=== PATIENT | male | born 1990 | race Caucasian/White ===

== ENCOUNTER 2024-06-01 11:25 | Observation (INO) ==
[2024-06-01] MEDS: oxyCODONE HCL IR 5 MG TAB (IMMEDIATE RELEASE) PO STA (11:55)
--- NOTE | 2024-06-01 12:44 | XRay Report ---
XR hip KAM 2v w pelvis CLINICAL HISTORY: fall, hip pain, more in left COMPARISON STUDY: Left hip radiographs December 08, 2020. FINDINGS: Sacroiliac joints and symphysis pubis are intact. Alignment of the bilateral total hip arth roplasties is anatomic. There is no periprosthetic fracture. There are no fractures within the pelvis or hips. IMPRESSION: 1. No fractures within the pelvis or hips. 2. Intact total bilateral hip arthroplasties. No periprosthetic fractures. ACT 112: Negative or not required by law. Electronically signed by: Benitez Alonzo M.D. 06/01/2024 12:43 PM
--- NOTE | 2024-06-01 12:50 | XRay Report ---
XR lumbar spine 2-3V CLINICAL HISTORY: fall, back pain COMPARISON STUDY: No previous studies for comparison. FINDINGS: There is moderate loss of height of the superior endplate of L1. This represents an age ind eterminate fracture. No additional lumbar spine fractures are present. Hip arthroplasties are partial ly imaged. Disc spaces are preserved. 3 mm left renal calculus is noted. A 7 mm round density project s over the left mid abdomen. IMPRESSION: 1. Age indeterminate compression fracture of the superior endplate of L1 with moderate loss of verteb ral body height. 2. No additional lumbar spine fractures. 3. 7 cm round density which projects over the lower pole of the left kidney. This is likely artifactu al although a left renal lesion such as a cyst or less likely solid renal lesion could appear similar . Nonemergent renal ultrasound is recommended. ACT 112: Positive. There are findings on this exam that require communication between the performing entity and the patient following Patient Test Result Information Act ([place] Act 112) guidelines. Electronically signed by: Benitez Alonzo M.D. 06/01/2024 12:48 PM
--- NOTE | 2024-06-01 12:55 | XRay Report ---
XR thoracic spine 3V routine HISTORY: 33 years-old Male fall, back pain acute mid back pain status post fall COMPARISON: None TECHNIQUE: 3 views of the thoracic spine FINDINGS: The imaged lung armando appear clear. No acute fracture, subluxation or significant changes. Mild lowe r thoracic levoscoliosis. Bilateral shoulder arthroplasties. IMPRESSION: No acute fracture or subluxation identified. ACT 112: Negative or not required by law. The above report was generated using voice recognition software. It may contain grammatical, syntax o r spelling errors. Electronically signed by: Raul Jerez M.D. 06/01/2024 12:54 PM
[2024-06-01] MEDS: ONDANSETRON INJ 2 MG/ML 2 ML VIAL IV STA (13:38)
[2024-06-01] MEDS: MoRPHine SULFATE 4 MG/ML 1 ML CARP\\VIAL IV STA (13:38)
[2024-06-01] MEDS: fentaNYL citrate PF 100 MCG/2 ML VIAL IV STA (15:03)
--- NOTE | 2024-06-01 17:26 | Magnetic Resonance Report ---
EXAM: MR lumbar spine wo con CLINICAL HISTORY: TECHNIQUE: MRI of the lumbar spine was performed without the administration of intravenous contrast. Sequences obtained include sagittal T1-weighted, T2-weighted, STIR (Short Tau Inversion Recovery), and axial T2-weighted sequences. COMPARISON: None. FINDINGS: Vertebral Alignment: Straightening of lumbar spine denoting muscle spasm. Normal alignment. Vertebral Bodies and Intervertebral Discs: Evidence of L1 vertebral body acute mild compression fracture with mild anterior wedging, showing partial collapse of the vertebral body about 30%, marrow edema noted involving the vertebral body and both pedicles, no retropulased segments or epidural hematoma, minimal related prevertebral edema/fluid No other fractures. Degenerative disc changes in the form of decreased disc height and bright T2 signals manifested in L4-L5 and L5-S1 disc spaces. [id number] analysis: T12-L1: There is no significant disc pathology. No spinal canal stenosis. No neural foraminal stenosis.No ligamentum flavum hypertrophy and facet joint arthropathy. L1-L2: There is no significant disc pathology. No spinal canal stenosis. No neural foraminal stenosis.No ligamentum flavum hypertrophy and facet joint arthropathy. L2-L3: There is no significant disc pathology. No spinal canal stenosis. No neural foraminal stenosis.No ligamentum flavum hypertrophy and facet joint arthropathy. L3-L4: There is no significant disc pathology. No spinal canal stenosis. No neural foraminal stenosis.No ligamentum flavum hypertrophy and facet joint arthropathy. L4-L5: shows a diffuse disc bulge more inclined towards the left side measuring 4.5 mm with a high-intensity zone denoting annular tear compressing the anterior aspect of the thecal sac and moderately encroaching upon posterior recess and foraminal more on the left side causing moderate left-sided foraminal stenosis, bilateral facet joint arthropathy and hypertrophied ligamentum flavum identing the thecal sac posterolaterally.. L5- S1 shows a diffuse disc bulge with central and left paracentral small herniation measuring 4.8 mm with a high-intensity zone denoting annular tear compressing the anterior aspect of thecal sac partially encroaching both neural recess and foraminal more on the left side causing moderate left-sided foraminal stenosis Spinal Cord and Nerve Roots: Conus medullaris terminates at the L1 level without abnormality. Nerve roots appear unremarkable bilaterally. The lower thoracic spinal cord, conus medullaris, and cauda equina nerve roots are unremarkable. Soft Tissues: Paraspinal soft tissues appear normal without evidence of abnormal signal intensity or mass lesions. IMPRESSION: 1. L1 vertebral body acute mild compression fracture with mild anterior wedging, showing partial collapse of the vertebral body about 30%. No retropulsed segment as described above, clinical correlation is advised. 2. L4/L5 and L5/S1 degenerative disc changes with disc herniations and annular tear causing mild to moderate central canal stenosis and left-sided moderate foraminal stenosis as detailed above [facility] was called at [phone] at 4:16 PM [employer], 06/01/2024 and Taylor (field secretary) was informed regarding the presence of significant medical findings in the report. She will inform the Doctor about the findings. Electronically signed by Kaity Aceves 06-01-2024 5:25 PM
[2024-06-01] MEDS: MoRPHine SULFATE 10 MG/ML CARP/VIAL IV STA (17:49)
--- NOTE | 2024-06-01 18:52 | Emergency Department Note ---
ED Provider Note History of Present Illness Chief Complaint: Back Injury/Pain Stated Complaint: FELL, BACK PAIN/INJURY Time Seen by Provider: 06/01/24 11:41 Source: patient Mode of arrival: ambulatory Limitations: no limitations Patient is a 33-year-old male who presents to the emergency department with complaints of back pain after a ground-level fall. Patient states that he was ambulating on slid be ground and lost his footing and fell backwards onto his back. Patient notes that he did also land somewhat on his left hip area. Patient notes that he has bilateral hip replacements and is having some pain in that left hip as well. Patient notes that the pain does feel that it is in his lumbar spine. Patient denies hitting his head or any loss of consciousness. Home Medications Medication Instructions Recorded Confirmed Type buspirone 7.5 mg tablet 7.5 mg PO BID 06/01/24 06/01/24 History dextroamphetamine-amphetamine 30 30 mg PO DAILY 06/01/24 06/01/24 History mg tablet (Adderall) escitalopram oxalate 20 mg tablet 20 mg PO DAILY 06/01/24 06/01/24 History liothyronine 50 mcg tablet 50 mcg PO DAILY 06/01/24 06/01/24 History multivitamin 1 tab PO DAILY 06/01/24 06/01/24 History naltrexone 50 mg tablet 50 mg PO UD PRN Other 06/01/24 06/01/24 History naltrexone microspheres 380 mg 380 mg IM MONTHLY 06/01/24 06/01/24 History intramuscular suspension,extended release (Vivitrol) Allergies Allergy/AdvReac Type Severity Reaction Status Date / Time codeine Allergy Intermediate Swelling Verified 05/28/21 05:24 [From Tylenol-Codeine #3] naproxen Allergy Mild Flushed, Verified 05/28/21 05:24 "hot" feeling Past Med/Surg History Problem List (Updated 06/01/24 @ 19:06 by Joni Soto MD) Alcohol abuse, in remission ADD (attention deficit disorder) Fall (Acute) Lumbar radiculopathy (Acute) Closed compression fracture of body of L1 vertebra (Acute) 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 I informed the patient that he may at increased risk for nerve injury with the nerve block if he already has some underlying neuropathy. He understand and would like to proceed with the nerve block." Depression Obesity Osteonecrosis Shoulders, hip Surgical History History of arthroplasty of right shoulder 01/01/2021: Grade 1 view, Glidescope #4, ETT#8.0 + PNB at [facility]. No issues per anesthesia progress note. History of tonsillectomy History of herniorrhaphy Left inguinal S/P hip replacement R/L Family History Other No pertinent family history Social History Smoking Status: Never smoker Tobacco Type: Smokeless Tobacco (Dip or Chew) Second Hand Exposure: No; Do You Dip or Chew Tobacco: Yes (1 can/2 days (advised NPO by RN); Hx Alcohol Use: No Hx Substance Use: No Preferred Language: Micronesian Communication Ability: Effective Extractor Operator Required: No Beliefs That Will Affect Care: None Current Living Situation: Spouse current occupational status: employed current occupation: [employer] Feels Safe at Home: Yes Physical Exam Vital Signs Vital Signs - 24 hr 06/01/24 11:28 06/01/24 15:06 06/01/24 15:08 Temperature 36.3 C L Temperature Source Temporal Artery Scan Pulse Rate 104 H 75 Pulse Rate [Apical] 81 Respiratory Rate 20 14 Respiratory Effort / Characteristics Non-Labored Spontaneous Respiratory Depth Normal Blood Pressure 140/89 Blood Pressure [Left Arm] 115/72 Blood Pressure Mean 106 Blood Pressure Mean [Left Arm] 86 Pulse Oximetry 100 99 Oxygen Delivery Method Room Air Room Air Sepsis Recent Fever Within 48 Hours No Sepsis New/Unexplained Change in Mental Status N/A Sepsis Action Taken by Nursing No Action Required 06/01/24 15:08 06/01/24 16:30 06/01/24 17:00 Temperature Temperature Source Pulse Rate Pulse Rate [Apical] 74 93 H Respiratory Rate 16 18 Respiratory Effort / Characteristics Respiratory Depth Blood Pressure Blood Pressure [Left Arm] 132/78 108/73 Blood Pressure Mean Blood Pressure Mean [Left Arm] 96 84 Pulse Oximetry 99 97 97 Oxygen Delivery Method Room Air Sepsis Recent Fever Within 48 Hours Sepsis New/Unexplained Change in Mental Status Sepsis Action Taken by Nursing 06/01/24 18:01 06/01/24 19:28 Temperature Temperature Source Pulse Rate Pulse Rate [Apical] 74 82 Respiratory Rate 18 16 Respiratory Effort / Characteristics Non-Labored Respiratory Depth Normal Blood Pressure Blood Pressure [Left Arm] 132/74 128/66 Blood Pressure Mean Blood Pressure Mean [Left Arm] 93 86 Pulse Oximetry 100 98 Oxygen Delivery Method Sepsis Recent Fever Within 48 Hours Sepsis New/Unexplained Change in Mental Status Sepsis Action Taken by Nursing VITAL SIGNS - Vital signs and nursing notes were reviewed. GENERAL -33-year-old male appearing his stated age and in noticeable discomfort throughout the exam. NECK - FROM of the cervical spine. ABDOMEN - Abdominal contour without pulsations or visible masses. BS normoactive all four quadrants. MUSCULOSKELETAL - ROM of the thoracic and lumbar spine region was significantly limited due to discomfort. No step-off deformities were palpated down the cervical, thoracic, or lumbar spines. Increased tenderness to Palpation experienced at the level of the lumbar spine paraspinal muscle distribution. NEUROLOGIC - REFLEXES: +3/4 patellar reflexes B/L, +3/4 Achilles reflexes B/L. SENSORY: Spinothalamic tract was found to be intact with ability to discriminate sharp versus dull sensation at the level of hip joint down do the great toe, though the patient does note that he is having tingling and intermittent bouts of increased numbness down his left leg. CEREBELLAR: Pt able to perform rapid alternating movements of the feet. EXTREMITIES - Range of Motion - Pt not easily able to perform straight leg raises B/L, more pronounced difficulty on the left side. Pt had + 4 strength appreciated bilaterally in the lower extremities against examiner's resistance. VASCULAR - Capillary refill of the great toe was brisk. No mottling or blanching of the extremities present. +3/5 dorsalis pedis pulses palpated bilaterally. Course Administered Medications Calcitonin Harriman (Calcitonin Harriman Na 200 Iu/Ac 3.7 Ml Btl) 1 sprays NA DAILY JEFF Stop: 07/01/24 19:14 Last Admin: 11/22/24 19:59 Dose: 1 sprays Documented By: ALEX Discontinued Medications Fentanyl Citrate (Fentanyl Citrate Pf 100 Mcg/2 Ml Vial) 100 mcg IV NOW STA Stop: 06/01/24 14:59 Last Admin: 06/01/24 15:03 Dose: 100 mcg Documented By: CHERRY Ioversol (Optiray 320 100ml) 90 ml IV ONCE ONE Stop: 06/01/24 19:21 Last Admin: 06/01/24 19:21 Dose: 90 ml Documented By: BAYLEE Lidocaine (Lidocaine 5% 1 Patch) 1 patch TD ONE ONE Stop: 06/01/24 19:31 Last Admin: 06/01/24 19:59 Dose: 1 patch Documented By: ALEX Morphine Sulfate (Morphine Sulfate 4 Mg/Ml 1 Ml Carp\\Vial) 4 mg IV NOW STA Stop: 06/01/24 13:28 Last Admin: 06/01/24 13:38 Dose: 4 mg Documented By: Morphine Sulfate (Morphine Sulfate 10 Mg/Ml Carp/Vial) 6 mg IV NOW STA Stop: 06/01/24 17:41 Last Admin: 06/01/24 17:49 Dose: 6 mg Documented By: CHERRY Ondansetron HCl (Ondansetron Inj 2 Mg/Ml 2 Ml Vial) 4 mg IV NOW STA Stop: 06/01/24 13:28 Last Admin: 06/01/24 13:38 Dose: 4 mg Documented By: MR Oxycodone HCl (Oxycodone Hcl Ir 5 Mg Tab (Immediate Release)) 10 mg PO NOW STA Stop: 06/01/24 11:46 Last Admin: 06/01/24 11:55 Dose: 10 mg Documented By: MIHCAEL Medical Decision Making Differential Diagnosis In the evaluation and treatment of this patient the following differential diagnoses were considered: Cauda equina syndrome, discitis, HNP, sciatica, epidural abscess, psoas abscess, musculoskeletal strain, lumbar fracture, lumbar dislocation, lumbar subluxation, spondylolisthesis, spondylosis, or compression fracture. Medical Records Attestation: I reviewed the patient's medical records. Home Medications was personally reviewed by me Laboratory Data Attestation: I reviewed the patient's lab results. 06/01/24 18:40 06/01/24 18:40 Lab Results 06/01/24 Range/Units 18:40 WBC 6.48 (4.8-10.8) K/ul RBC 5.35 (4.70-6.10) M/uL Hgb 15.2 (14.0-18.0) g/dl Hct 45.6 (42.0-52.0) % MCV 85.2 (80.0-100.0) fL MCH 28.4 (25.0-34.0) pg MCHC 33.3 (32.0-36.0) g/dL RDW Std Deviation 37.4 (36.4-46.3) fL RDW Coeff of Padmaja 12.0 (11.5-14.5) % Plt Count 170 (130-400) K/uL MPV 9.4 (9.4-12.4) fL Immature Gran % (Auto) 0.3 % Neut % (Auto) 64.6 % Lymph % (Auto) 23.9 % [place] % (Auto) 9.1 % Eos % (Auto) 1.9 % Baso % (Auto) 0.2 % Neut # (Auto) 4.19 (1.40-6.50) K/uL Lymph # (Auto) 1.55 (1.20-3.40) K/uL [place] # (Auto) 0.59 (0.11-0.59) K/uL Eos # (Auto) 0.12 (0.00-0.50) K/uL Baso # (Auto) 0.01 (0.00-0.20) K/uL Immature Gran # (Auto) 0.02 (0.01-0.20) K/uL Sodium 140 (136-145) mmol/L Potassium 4.1 (3.5-5.1) mmol/L Chloride 106 (98-107) mmol/L Carbon Dioxide 26 (21-32) mmol/L Anion Gap 8 (3-11) BUN 15 (6-23) mg/dl Creatinine 0.84 (0.6-1.4) mg/dl Est Cr Clr Drug Dosing 167.9 ml/min eGFR 117.35 BUN/Creatinine Ratio 17.9 (10-20) Glucose 96 (70-99(Fasting)) mg/dl Calcium 9.7 (8.6-10.3) mg/dl Total Bilirubin 0.9 (0.2-1.0) mg/dl AST 22 (13-39) U/L ALT 25 (7-52) U/L Alkaline Phosphatase 55 (34-104) U/L Total Protein 7.1 (6.0-8.3) gm/dl Albumin 4.3 (3.4-5.0) gm/dl Globulin 2.8 (2.5-4.0) gm/dl Albumin/Globulin Ratio 1.5 (0.9-2) Imaging Data Radiologist's Impression: Hip/Pelvis X-Ray 06/01/24 11:44 XR hip KAM 2v w pelvis CLINICAL HISTORY: fall, hip pain, more in left COMPARISON STUDY: Left hip radiographs December 08, 2020. FINDINGS: Sacroiliac joints and symphysis pubis are intact. Alignment of the bilateral total hip arthroplasties is anatomic. There is no periprosthetic fracture. There are no fractures within the pelvis or hips. IMPRESSION: 1. No fractures within the pelvis or hips. 2. Intact total bilateral hip arthroplasties. No periprosthetic fractures. ACT 112: Negative or not required by law. Electronically signed by: Benitez Alonzo M.D. 06/01/2024 12:43 PM Lumbar Spine X-Ray 06/01/24 11:44 XR lumbar spine 2-3V CLINICAL HISTORY: fall, back pain COMPARISON STUDY: No previous studies for comparison. FINDINGS: There is moderate loss of height of the superior endplate of L1. This represents an age indeterminate fracture. No additional lumbar spine fractures are present. Hip arthroplasties are partially imaged. Disc spaces are preserved. 3 mm left renal calculus is noted. A 7 mm round density projects over the left mid abdomen. IMPRESSION: 1. Age indeterminate compression fracture of the superior endplate of L1 with moderate loss of vertebral body height. 2. No additional lumbar spine fractures. 3. 7 cm round density which projects over the lower pole of the left kidney. This is likely artifactual although a left renal lesion such as a cyst or less likely solid renal lesion could appear similar. Nonemergent renal ultrasound is recommended. ACT 112: Positive. There are findings on this exam that require communication between the performing entity and the patient following Patient Test Result Information Act ([place] Act 112) guidelines. Electronically signed by: Benitez Alonzo M.D. 06/01/2024 12:48 PM Thoracic Spine X-Ray 06/01/24 11:44 XR thoracic spine 3V routine HISTORY: 33 years-old Male fall, back pain acute mid back pain status post fall COMPARISON: None TECHNIQUE: 3 views of the thoracic spine FINDINGS: The imaged lung armando appear clear. No acute fracture, subluxation or significant changes. Mild lower thoracic levoscoliosis. Bilateral shoulder arthroplasties. IMPRESSION: No acute fracture or subluxation identified. ACT 112: Negative or not required by law. The above report was generated using voice recognition software. It may contain grammatical, syntax or spelling errors. Electronically signed by: Raul Jerez M.D. 06/01/2024 12:54 PM Lumbar Spine MRI 06/01/24 13:11 EXAM: MR lumbar spine wo con CLINICAL HISTORY: TECHNIQUE: MRI of the lumbar spine was performed without the administration of intravenous contrast. Sequences obtained include sagittal T1-weighted, T2-weighted, STIR (Short Tau Inversion Recovery), and axial T2-weighted sequences. COMPARISON: None. FINDINGS: Vertebral Alignment: Straightening of lumbar spine denoting muscle spasm. Normal alignment. Vertebral Bodies and Intervertebral Discs: Evidence of L1 vertebral body acute mild compression fracture with mild anterior wedging, showing partial collapse of the vertebral body about 30%, marrow edema noted involving the vertebral body and both pedicles, no retropulased segments or epidural hematoma, minimal related prevertebral edema/fluid No other fractures. Degenerative disc changes in the form of decreased disc height and bright T2 signals manifested in L4-L5 and L5-S1 disc spaces. [id number] analysis: T12-L1: There is no significant disc pathology. No spinal canal stenosis. No neural foraminal stenosis.No ligamentum flavum hypertrophy and facet joint arthropathy. L1-L2: There is no significant disc pathology. No spinal canal stenosis. No neural foraminal stenosis.No ligamentum flavum hypertrophy and facet joint arthropathy. L2-L3: There is no significant disc pathology. No spinal canal stenosis. No neural foraminal stenosis.No ligamentum flavum hypertrophy and facet joint arthropathy. L3-L4: There is no significant disc pathology. No spinal canal stenosis. No neural foraminal stenosis.No ligamentum flavum hypertrophy and facet joint arthropathy. L4-L5: shows a diffuse disc bulge more inclined towards the left side measuring 4.5 mm with a high-intensity zone denoting annular tear compressing the anterior aspect of the thecal sac and moderately encroaching upon posterior recess and foraminal more on the left side causing moderate left-sided foraminal stenosis, bilateral facet joint arthropathy and hypertrophied ligamentum flavum identing the thecal sac posterolaterally.. L5- S1 shows a diffuse disc bulge with central and left paracentral small herniation measuring 4.8 mm with a high-intensity zone denoting annular tear compressing the anterior aspect of thecal sac partially encroaching both neural recess and foraminal more on the left side causing moderate left-sided foraminal stenosis Spinal Cord and Nerve Roots: Conus medullaris terminates at the L1 level without abnormality. Nerve roots appear unremarkable bilaterally. The lower thoracic spinal cord, conus medullaris, and cauda equina nerve roots are unremarkable. Soft Tissues: Paraspinal soft tissues appear normal without evidence of abnormal signal intensity or mass lesions. IMPRESSION: 1. L1 vertebral body acute mild compression fracture with mild anterior wedging, showing partial collapse of the vertebral body about 30%. No retropulsed segment as described above, clinical correlation is advised. 2. 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 She will inform the Doctor about the findings. Electronically signed by Kaity Aceves 06-01-2024 5:25 PM [facility] Narrative Patient is a 33-year-old male who presents to the emergency department with complaints of back pain after a ground-level fall. Patient states that he was ambulating on slid be ground and lost his footing and fell backwards onto his back. Patient notes that he did also land somewhat on his left hip area. Patient notes that he has bilateral hip replacements and is having some pain in that left hip as well. Patient notes that the pain does feel that it is in his lumbar spine. Patient denies hitting his head or any loss of consciousness. Patient was evaluated by myself and findings were noted in physical exam above. The patient was initially ordered an x-ray of the left hip and pelvis as well as the thoracic and lumbar spines. Patient was ordered a dose of IV morphine and IV Zofran for his symptoms at this time. Patient's hip x-ray was interpreted by radiology and shows no fracture within the pelvis or the hips. Patient has intact total bilateral hip arthroplasties with no periprosthetic fractures. On the patient's lumbar spine x-ray radiology noted an age-indeterminate compression fracture of L1 with moderate loss of vertebral body height. And the thoracic spine x-ray showed no acute fracture or subluxation. I reached out to Dr. Oneill who is on-call for orthospine to review these findings with him. Dr. Oneill suggested that because the patient is having some radicular pain and the presence of this possible acute fracture that an MRI should be completed. Patient was ordered an MRI of the lumbar spine at this time. Upon reevaluation the patient states that his pain is still significant and the first dose of morphine did not help much with this pain. Patient was then ordered a an IV dose of fentanyl for pain. Upon reevaluation the patient states that the fentanyl did nothing to help with his pain and the morphine was more pain relieving. Patient was ordered a second dose of morphine at this time. Patient's MRI was interpreted by radiology to show L1 vertebral body acute mild compression fracture with mild anterior wedging and a partial collapse of the vertebral body. Patient also had L4-L5 and L5-S1 disc herniations. I reached back out to Dr. Oneill with his MRI results and he verbalized that he was also looking at the results and suggested that if the patient's pain was not able to be controlled with several rounds of IV pain medication that he should likely be admitted to the hospital for intractable pain. He suggested that the patient be admitted to the hospitalist service and they could consult him. I did ask Dr. Oneill if he would be willing to admit the patient under his service but he again suggested that the patient be admitted under the medical service and consult him. [facility] service. Dr. Neff was given a brief report on the patient, his current status and MRI findings as well as consult from Dr. Oneill. Dr. Neff agreed to admit the patient under his service. Please refer to [facility] hospitalist group's documentation for further management and evaluation of this patient. Impression Closed compression fracture of body of L1 vertebra, Lumbar radiculopathy, Fall Discharge Plan Visit Data Chief Complaint: Back Injury/Pain Stated Complaint: FELL, BACK PAIN/INJURY ED Provider: Barry Garcia ED Midlevel Provider: Alem Berry Discharge Problem: Closed compression fracture of body of L1 vertebra, Lumbar radiculopathy, Fall Patient Disposition: Admitted As Inpatient Forms Stand Alone Forms: [facility] Prescriptions Prescriptions: No Action multivitamin [Multi-Vitamin] Tablet 1 tab PO DAILY naltrexone 50 mg tablet 50 mg PO UD PRN (Reason: Other) Rx Instructions: takes when he feels the vivitrol shot effects wearing off for the month dextroamphetamine-amphetamine [Adderall] 30 mg tablet 30 mg PO DAILY liothyronine 50 mcg tablet 50 mcg PO DAILY buspirone 7.5 mg tablet 7.5 mg PO BID escitalopram oxalate 20 mg tablet 20 mg PO DAILY Vivitrol 380 mg suspension,extended rel recon 380 mg IM MONTHLY Referrals Referrals: PCP,NO [Primary Care Provider] - Discharge Problem: Fall Qualifiers: Encounter type: initial encounter Qualified Code(s): W19.XXXA - Unspecified fall, initial encounter
[2024-06-01 18:59] LABS: Basophils # (auto) 0.01 K/uL (0.00-0.20); Basophils % (auto) 0.2 %; Eosinophils # (auto) 0.12 K/uL (0.00-0.50); Eosinophils % (auto) 1.9 %; Hematocrit (blood only) 45.6 % (42.0-52.0); Hemoglobin 15.2 g/dl (14.0-18.0); Immature Granulocytes # (auto) 0.02 K/uL (0.01-0.20); Immature Granulocytes % (auto) 0.3 %; Lymphocytes # (auto) 1.55 K/uL (1.20-3.40); Lymphocytes % (auto) 23.9 %; Mean Corpuscular Hemoglobin 28.4 pg (25.0-34.0); Mean Corpuscular Hgb Conc 33.3 g/dL (32.0-36.0); Mean Corpuscular Volume 85.2 fL (80.0-100.0); Mean Platelet Volume 9.4 fL (9.4-12.4); Monocytes # (auto) 0.59 K/uL (0.11-0.59); Monocytes % (auto) 9.1 %; Neutrophils # (auto) 4.19 K/uL (1.40-6.50); Neutrophils % (auto) 64.6 %; Platelet Count 170 K/uL (130-400); RDW Standard Deviation 37.4 fL (36.4-46.3); Red Blood Count 5.35 M/uL (4.70-6.10); White Blood Count 6.48 K/ul (4.8-10.8)
[2024-06-01 19:09] LABS: Albumin Globulin Ratio 1.5 (0.9-2); Albumin Level 4.3 gm/dl (3.4-5.0); BUN Creatinine Ratio 17.9 (10-20); Bilirubin,Total 0.9 mg/dl (0.2-1.0); Calcium 9.7 mg/dl (8.6-10.3); Creatinine Clr Calc Pharmacy 167.9 ml/min; Globulin 2.8 gm/dl (2.5-4.0); Potassium 4.1 mmol/L (3.5-5.1); Total Protein 7.1 gm/dl (6.0-8.3)
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
[2024-06-01] MEDS ORDERED: MoRPHine SULFATE 2 MG/ML CARP IV PRN (19:13)
[2024-06-01] MEDS ORDERED: ACETAMINOPHEN 325 MG TAB PO PRN (19:13)
[2024-06-01] MEDS: OPTIRAY 320 100ml IV ONE (19:21)
[2024-06-01] MEDS: CALCITONIN SALMON NA 200 IU/AC 3.7 ML BTL SCH (19:59)
[2024-06-01] MEDS: LIDOCAINE 5% 1 PATCH TD ONE (19:59)
[2024-06-01] MEDS: CALCIUM 600MG + VIT D 400 IU TAB PO ONE (21:46)
[2024-06-01] MEDS ORDERED: Nursing to Pharmacy Communication SCH (22:00)
[2024-06-02] MEDS: busPIRone 7.5 MG TAB PO SCH (00:05)
[2024-06-02] MEDS: MoRPHine SULFATE 4 MG/ML 1 ML CARP\\VIAL IV PRN (05:51)
[2024-06-02 07:29] LABS: Basophils # (auto) 0.02 K/uL (0.00-0.20); Basophils % (auto) 0.3 %; Eosinophils % (auto) 4.9 %; Hematocrit (blood only) 43.8 % (42.0-52.0); Hemoglobin 14.4 g/dl (14.0-18.0); Immature Granulocytes # (auto) 0.02 K/uL (0.01-0.20); Immature Granulocytes % (auto) 0.3 %; Lymphocytes % (auto) 26.2 %; Mean Corpuscular Hgb Conc 32.9 g/dL (32.0-36.0); Mean Platelet Volume 9.5 fL (9.4-12.4); Monocytes # (auto) 0.58 K/uL (0.11-0.59); Monocytes % (auto) 9.5 %; Neutrophils # (auto) 3.58 K/uL (1.40-6.50); Neutrophils % (auto) 58.8 %; Platelet Count 168 K/uL (130-400); RDW Coefficient of Variation 12.2 % (11.5-14.5); RDW Standard Deviation 37.2 fL (36.4-46.3); Red Blood Count 5.15 M/uL (4.70-6.10)
[2024-06-02 08:04] LABS: BUN Creatinine Ratio 16.3 (10-20); Calcium 9.3 mg/dl (8.6-10.3); Creatinine Clr Calc Pharmacy 174.8 ml/min; Potassium 4.3 mmol/L (3.5-5.1)
[2024-06-02 08:09] VITALS: O2SAT 96
[2024-06-02] MEDS: CALCIUM 600MG + VIT D 400 IU TAB PO SCH (09:10)
[2024-06-02] MEDS: LIOTHYRONINE SODIUM 25 MCG TAB PO SCH (09:11)
[2024-06-02] MEDS: ESCITALOPRAM OXALATE 20 MG TAB PO SCH (09:11)
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
[2024-06-02] MEDS ORDERED: oxyCODONE HCL IR 5 MG TAB (IMMEDIATE RELEASE) PO PRN (09:53)
[2024-06-02] MEDS ORDERED: tiZANidine HCL 4 MG TABLET PO PRN (09:53)
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
[2024-06-02] MEDS: LIDOCAINE 5% 1 PATCH TD SCH (10:39)
--- NOTE | 2024-06-02 12:29 | CT Scan Report ---
Exam(s): CT L SPINE IV Amt: OPTIRAY 320 90ML EXAM: CT Lumbar Spine With Intravenous Contrast CLINICAL HISTORY: Reason for exam: lumbar back pain, Dr. Oneill requested. TECHNIQUE: Axial computed tomography images of the lumbar spine with intravenous contrast. CTDI is 78.8 mGy and DLP is 2274.97 mGy-cm. Automated exposure control was utilized for the study. A dose lowering technique was utilized adhering to the principles of ALARA. CONTRAST: Patient received OPTIRAY 320 90ML of IV contrast COMPARISON: Same day lumbar spine radiographs and MRI lumbar spine. FINDINGS: Bones: Normal alignment. Comminuted fractures of the L1 vertebral body. Approximately up to 50% vertebral body height loss. Disc spaces: No subluxation. No spinal canal stenosis or neuroforaminal stenosis. Soft tissues: Normal. Other: Small nonobstructing bilateral renal stones. IMPRESSION: Comminuted fractures of the L1 vertebral body. Electronically signed by: [employer] M.D. 06/01/24 20:33 PM
[2024-06-02 16:16] VITALS: BP 121/67; PULSE 62; RESP 18; TEMP 97.9
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
== END 2024-06-02 18:42 | disposition home or self-care (01) | DRG 552 ==
LOC: ED 11:25 → INTOOBSV 19:11 → 3N 19:11 → SUATTDRO 19:11 → 3N 22:22

== ENCOUNTER 2024-12-28 06:06 | Inpatient (IN) ==
--- NOTE | 2024-11-12 11:44 | PAT Medication Instructions ---
Medication Instructions Date of Service November 12, 2024 Home Medications buspirone 7.5 mg tablet 7.5 mg PO BID dextroamphetamine-amphetamine 30 mg tablet (Adderall) 30 mg PO QAM escitalopram oxalate 20 mg tablet 20 mg PO QAM liothyronine 50 mcg tablet 50 mcg PO QAM multivitamin 1 tab PO DAILY naltrexone 50 mg tablet 50 mg PO UD PRN Other naltrexone microspheres 380 mg intramuscular suspension,extended release (Vivitrol) 380 mg IM MONTHLY Continue as directed naltrexone microspheres 380 mg intramuscular suspension,extended release (Vivitrol) 380 mg IM MONTHLY naltrexone 50 mg tablet 50 mg PO UD PRN Other (if needed) DO NOT take the morning of surgery dextroamphetamine-amphetamine 30 mg tablet (Adderall) 30 mg PO QAM multivitamin 1 tab PO DAILY Take morning of surgery With a small sip of water, OTHERWISE NOTHING TO EAT OR DRINK AFTER MIDNIGHT: buspirone 7.5 mg tablet 7.5 mg PO BID escitalopram oxalate 20 mg tablet 20 mg PO QAM liothyronine 50 mcg tablet 50 mcg PO QAM Take evening before surgery buspirone 7.5 mg tablet 7.5 mg PO BID Other Notes If you have any questions please call us at [phone] or [phone] or [phone] or [phone]
--- NOTE | 2024-12-10 08:58 | Anesthesiology Consultation ---
Date of Service December 10, 2024 Assessment & Plan (1) Encounter for pre-operative examination: - Infectious disease screening: Per assessment on 12/10/24- No known recent infectious disease contacts or current infectious disease symptoms. - Anesthesia hx: * Left TSA (05/28/21): LMA#5 Igel, atraumatic + regional at [facility] * Right TSA anatomic (01/01/2021): Grade 1 view, Glidescope #4, ETT#8.0 + PNB at [facility] Chart Review Chart Review: Acceptable Risk for Surgery and Patient seen in Pre Admission Testing Teaching & Discussion Pre-Anesthesia Teaching/Discussion Notes: Instructed NPO after midnight before surgery,except medications with 15 cc of water. Medication instructions provided according to the PAT guidelines. History Surgery Operation Date: 12/28/24 07:30 Proposed Procedures p T12-L2 Posterior Lumbar Instrumental Fusion, with CT Navigation and Spinal Cord Monitoring - Darnell Oneill MD Height/Weight Height: 6 ft 3 in Weight: 123 kg Allergies Allergy/AdvReac Type Severity Reaction Status Date / Time codeine Allergy Intermediate Swelling Verified 11/09/24 11:54 [From Tylenol-Codeine #3] naproxen Allergy Mild Flushed, Verified 11/09/24 11:54 "hot" feeling Medications Home Medications Medication Instructions Recorded Confirmed Last Taken buspirone 7.5 mg tablet 7.5 mg PO BID 06/01/24 11/09/24 Unknown dextroamphetamine-amphetamine 30 30 mg PO QAM 06/01/24 11/09/24 Unknown mg tablet (Adderall) escitalopram oxalate 20 mg tablet 20 mg PO QAM 06/01/24 11/09/24 Unknown liothyronine 50 mcg tablet 50 mcg PO QAM 06/01/24 11/09/24 Unknown multivitamin 1 tab PO DAILY 06/01/24 11/09/24 Unknown naltrexone 50 mg tablet 50 mg PO UD PRN Other 06/01/24 11/09/24 Unknown naltrexone microspheres 380 mg 380 mg IM MONTHLY 06/01/24 11/09/24 Unknown intramuscular suspension,extended release (Vivitrol) Past Medical History Medical History ADD (attention deficit disorder) Alcohol abuse, in remission Depression History of seizure Hx seizures from alcohol withdrawal (2016) Now sober; no issues since Hypothyroidism Obesity Paresthesia of both hands Occasional Vertebral compression fracture 05/2024, r/t fall injury Exercise / Class Metabolic Activity II 4-5 Yardwork/Stairs/Walk up hill (one FS: No CP, no SOB) Past Family History Family History Other No family history of adverse response to anesthesia No pertinent family history Past Surgical History Surgical History History of arthroplasty of right shoulder Grade 1 view, Glidescope #4, ETT#8.0 + PNB at [facility]. No issues per anesthesia progress note (01/01/2021) History of herniorrhaphy Left inguinal History of left shoulder replacement Left TSA (05/28/21): LMA#5 Igel, atraumatic + regional at [facility] History of tonsillectomy Hx of colonoscopy S/P hip replacement R/L Past Anesthesia History No Hx of Anesthesia Complications and No Family Hx of Anesthesia Complications History of PONV No Hx of PONV and No Hx of Motion Sickness Social History Smoking Status: Never smoker tobacco type: smokeless tobacco Do You Dip or Chew Tobacco: Yes (Daily- advised none DOS) Hx Alcohol Use: No (Hx alcohol use/abuse, Sober/no ETOH use x ~3 years) Hx Substance Use: No substance use type: does not use Review of Systems Patient denies chest pain, shortness of breath, dyspnea on exertion, fever, chills, cough, wheezing, palpitations. Physical Exam Vital Signs BP 123/83 P 86 TEMP 98.3 SP02 98%RA RESP 18 Physical Full cervical extension range of motion. Full TMJ range of motion. TMD > 3.5 finger breaths Mallampati Score II Dentition: intact, dental work currently scheduled to be done day before surgery; "filling" several crowns that are worn down > Génesis Castañeda with surgeon's office notified Lungs: clear throughout to auscultation Cardiac: regular rate and rhythm, no murmurs noted Spine: normal Extremities: no LE edema Lab Results Anesthesia Preop Results Results Anesthesia Widget: WBC 6.68 K/ul (4.8-10.8) 12/10/24 Hgb 15.5 g/dl (14.0-18.0) 12/10/24 Hct 46.0 % (42.0-52.0) 12/10/24 Plt 218 K/uL (130-400) 12/10/24 Na 137 mmol/L (136-145) 12/10/24 K 4.3 mmol/L (3.5-5.1) 12/10/24 Cl 103 mmol/L (98-107) 12/10/24 CO2 26 mmol/L (21-32) 12/10/24 BUN 21 mg/dl (6-23) 12/10/24 Creat 0.93 mg/dl (0.6-1.4) 12/10/24 Glucose Level 105 mg/dl (70-99(Fasting)) H 12/10/24 PT 10.8 Seconds (9.0-12.0) 12/10/24 PTT 27 Seconds (21-31) 12/10/24 INR 1.0 (0.9-1.1) 12/10/24 HA1c 5.4 % (4.5-5.6) 12/10/24 Blood Type A Positive 12/10/24 Antibody Screen NEGATIVE 12/10/24
[2024-12-28] MEDS: LR 15ML/HR IV SCH (06:31)
[2024-12-28] MEDS: LR 60ML/HR IV SCH (06:31)
[2024-12-28] MEDS ORDERED: REMIFENTANIL HCL 1 MG VIAL IV ONE (06:41)
[2024-12-28] MEDS ORDERED: PROPOFOL IV EMULSION 10 MG/ML 20 ML VIAL IV ONE ×2 (06:42→10:06)
[2024-12-28] MEDS ORDERED: DEXAMETHASONE SOD INJ 4 MG/ML VIAL ONE (06:42)
[2024-12-28] MEDS ORDERED: ROCURONIUM BROMIDE 10 MG/ML 5 ML VIAL IV ONE ×2 (06:42→09:08)
[2024-12-28] MEDS ORDERED: LIDOCAINE 2% 2 ML VIAL/AMP(20MG/ML) INFIL ONE (06:42)
[2024-12-28] MEDS ORDERED: ONDANSETRON INJ 2 MG/ML 2 ML VIAL ONE (06:42)
[2024-12-28] MEDS ORDERED: SUCCINYLCHOLINE CHLORIDE 20 MG/ML 10 ML VIAL IV ONE (06:42)
[2024-12-28] MEDS ORDERED: fentaNYL citrate PF 100 MCG/2 ML VIAL ONE ×3 (06:43→10:41)
[2024-12-28] MEDS ORDERED: KETAMINE HCL 10MG/ML SYR ONE (06:43)
[2024-12-28] MEDS ORDERED: MIDAZOLAM HCL 1 MG/ML 2ML VIAL ONE (06:43)
[2024-12-28] MEDS ORDERED: DexMEDEtomidine HCL IV 100 MCG/ML VIAL IV ONE (06:45)
[2024-12-28] MEDS ORDERED: ATROPINE SULFATE 0.1 MG/ML 10ML SYR IV PRN (07:07)
[2024-12-28] MEDS ORDERED: DROPERIDOL 5 MG/2 ML VIAL IV PRN (07:07)
--- NOTE | 2024-12-28 07:23 | History & Physical Bridge Note ---
Date of Service December 28, 2024 History & Physical Bridge Note I have examined the patient, reviewed the History & Physical and in the interval since the performance of the History & Physical I have noted the following changes of clinical significance: no changes noted Plan for T12-L2 fusion for non-healing fracture at L1
[2024-12-28] MEDS: ceFAZolin 3000MG 3,000 MG/72.5 ML BAG IV SCH ×2 (07:36→17:17)
[2024-12-28] MEDS ORDERED: ALBUMIN HUMAN 5% 12.5 GM/250 ML VIAL IV ONE (08:34)
[2024-12-28] MEDS ORDERED: PHENYLEPHRINE 100MCG/ML 5ML SYR ONE (09:08)
[2024-12-28] MEDS ORDERED: SUGAMMADEX SODIUM 200 MG/2 ML VIAL IV ONE (09:38)
[2024-12-28] MEDS ORDERED: PROPOFOL IV EMULSION 10 MG/ML 100 ML VIAL IV ONE (10:06)
[2024-12-28] MEDS: BUPIVACAINE 0.5 % 5 MG/1 ML MPF 30ML VIAL ONE (10:39)
[2024-12-28] MEDS: VANCOMYCIN HCL 1000MG/20ML VIAL ONE (10:40)
--- NOTE | 2024-12-28 10:49 | Fluoroscopy Report ---
FL lumbar spine 2-3V CLINICAL HISTORY: T12-L2 POSTERIOR LUMBAR FUSION COMPARISON STUDY: None FLUOROSCOPY TIME: 17 seconds FLUOROSCOPY IMAGES: 6 EXPOSURE DOSE: 11 mGy FINDINGS: Fluoroscopy was provided for spinal surgery. IMPRESSION: Intraoperative fluoroscopy. ACT 112: Negative or not required by law. Electronically signed by: Jj Borges M.D. 12/28/2024 10:48 AM
[2024-12-28] MEDS ORDERED: ONDANSETRON 4 MG OD TAB PO PRN (11:09)
[2024-12-28] MEDS ORDERED: ALUMINUM/MAGNESIUM SUSP 30 ML UDC PO PRN (11:09)
[2024-12-28] MEDS ORDERED: DO NOT ADMINISTER FLU VACCINE PRN (11:09)
[2024-12-28] MEDS ORDERED: SOD PHOSPHATE/SOD BIPHOSPHATE ENEMA 132 ML BTL PR PRN (11:09)
[2024-12-28] MEDS ORDERED: LORazepam 2 MG/1 ML VIAL IV PRN (11:09)
[2024-12-28] MEDS ORDERED: LORazepam 0.5 MG TAB PO PRN (11:09)
[2024-12-28] MEDS ORDERED: DO NOT ADMINISTER PNEUMOCOCCAL VACCINE PRN (11:09)
[2024-12-28] MEDS ORDERED: PROMETHAZINE 12.5 MG/50.5 ML BAG IV PRN (11:09)
[2024-12-28] MEDS ORDERED: bisacodyL 10 MG SUPP PR PRN (11:09)
[2024-12-28] MEDS ORDERED: FAMOTIDINE 20 MG TAB PO PRN (11:09)
[2024-12-28] MEDS ORDERED: NALOXONE HCL 0.4 MG/1 ML VIAL/CARP IV PRN (11:09)
[2024-12-28] MEDS ORDERED: ONDANSETRON INJ 2 MG/ML 2 ML VIAL IV PRN (11:09)
[2024-12-28] MEDS ORDERED: diphenhydrAMINE Capsule 25 MG CAP PO PRN (11:09)
[2024-12-28] MEDS ORDERED: MAGNESIUM HYDROXIDE SUSP 30 ML UDC PO PRN (11:09)
[2024-12-28] MEDS ORDERED: ACETAMINOPHEN 1,000 MG/100 ML VIAL IV PRN (11:09)
[2024-12-28] MEDS ORDERED: METOCLOPRAMIDE HCL INJ 5 MG/ML 2 ML VIAL IV PRN (11:09)
[2024-12-28] MEDS: HYDROmorphone INJ 2 MG/ML SYR/VIAL IV PRN ×2 (11:21→13:57)
[2024-12-28] MEDS: PROMETHAZINE HCL 6.25 MG in SODIUM CHLORIDE 0.9% 50 ML IV PRN (11:24)
[2024-12-28] MEDS: PROMETHAZINE HCL INJ 25 MG/ML 1 ML VIAL ONE (11:26)
[2024-12-28] MEDS: SODIUM CHLORIDE 0.9% 50 ML BAG ONE (11:26)
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
[2024-12-28] MEDS: ACETAMINOPHEN 1,000 MG/100 ML VIAL IV STA (12:30)
[2024-12-28] MEDS: HYDROmorphone INJ 2 MG/ML SYR/VIAL IV SCH (12:51)
[2024-12-28] MEDS: ACETAMINOPHEN 1000 MG/100 ML IV IV ONE (12:52)
[2024-12-28] MEDS: HYDROmorphone INJ 2 MG/ML SYR/VIAL ONE (12:52)
[2024-12-28] MEDS: ePHEDrine sulfate 50 MG/ML AMP IV PRN (13:24)
[2024-12-28] MEDS: dexAMETHasone**PF** 10 MG/ML VIAL IV ONE (13:44)
--- NOTE | 2024-12-28 13:51 | Anesthesiology Progress Note ---
Date of Service December 28, 2024 Anesthesia Post Procedure Vital Signs Vital Signs: Temp Pulse Pulse Resp BP Pulse Ox O2 Del Method 12/28/24 13:50 72 12 98/55 L 98 Room Air 12/28/24 13:40 75 12 95/55 L 99 Room Air 12/28/24 13:30 56 L 12 85/44 L 92 Room Air 12/28/24 13:20 48 L 12 97/72 L 99 Room Air 12/28/24 13:10 56 L 12 98/46 L 95 Room Air 12/28/24 13:00 71 14 93/56 L 97 Room Air 12/28/24 12:50 53 L 20 110/70 95 Room Air 12/28/24 12:40 68 12 102/53 L 93 Nasal Cannula 12/28/24 12:30 61 12 90/57 L 96 Room Air 12/28/24 12:20 45 L 12 93/59 L 88 L Room Air 12/28/24 12:10 36.4 C L 53 L 13 95/69 L 97 Room Air 12/28/24 12:00 65 13 92/61 L 95 Oxymask 12/28/24 11:50 62 12 117/65 97 Oxymask 12/28/24 11:40 58 L 12 101/63 97 Oxymask 12/28/24 11:30 72 12 105/75 98 Oxymask 12/28/24 11:20 73 12 117/75 97 Oxymask 12/28/24 11:10 36.0 C L 75 12 108/69 98 Oxymask 12/28/24 06:19 36.6 C 69 20 123/89 98 Room Air O2 Flow Rate 12/28/24 13:50 2 12/28/24 13:40 2 12/28/24 13:30 2 12/28/24 13:20 2 12/28/24 13:10 2 12/28/24 13:00 2 12/28/24 12:50 2 12/28/24 12:40 2 12/28/24 12:30 12/28/24 12:20 12/28/24 12:10 12/28/24 12:00 2 12/28/24 11:50 2 12/28/24 11:40 2 12/28/24 11:30 2 12/28/24 11:20 4 12/28/24 11:10 4 12/28/24 06:19 Pain Intensity Bilateral Lower Back: Pain Intensity: 7 Transfer of Care Handoff Completed per policy Notes Mental Status: alert / awake / arousable and participated in evaluation Nausea / Vomiting: adequately controlled Pain: adequately controlled Airway Patency, RR, SpO2: stable & adequate BP & HR: stable & adequate Hydration State: stable & adequate Anesthetic Complications: no major complications apparent and Pt Satisfied with anesthetic care
[2024-12-28] MEDS: FLOSEAL HEMOSTATIC MATRIX 10ML TOP ONE (14:46)
[2024-12-28] MEDS: KETOROLAC 30 MG/ML VIAL ONE (14:48)
[2024-12-28] MEDS: LACTATED RINGER'S 1,000 ML IV SCH (15:25)
[2024-12-28] MEDS: oxyCODONE HCL IR 5 MG TAB (IMMEDIATE RELEASE) PO PRN (18:11)
[2024-12-28] MEDS: dexAMETHasone 10 MG in SYRINGE 0 ML IV SCH (21:56)
[2024-12-28] MEDS: busPIRone 7.5 MG TAB PO SCH (21:56)
[2024-12-28] MEDS: HYDROmorphone INJ 1 MG/ML SYRINGE IV PRN (22:01)
[2024-12-28] MEDS: DOCUSATE SODIUM/SENNA 50/8.6MG TAB PO SCH (22:04)
[2024-12-29] MEDS: hydrOXYzine HCl 25 MG TAB PO PRN (02:31)
[2024-12-29] MEDS: POLYETHYLENE (MIRALAX) 17 GM PACK PO SCH (06:17)
[2024-12-29 06:37] LABS: Basophils # (auto) 0.01 K/uL (0.00-0.20); Basophils % (auto) 0.1 %; Hematocrit (blood only) 37.1 % (42.0-52.0); Hemoglobin 12.5 g/dl (14.0-18.0); Immature Granulocytes # (auto) 0.06 K/uL (0.01-0.20); Immature Granulocytes % (auto) 0.5 %; Lymphocytes % (auto) 7.8 %; Mean Corpuscular Hemoglobin 28.7 pg (25.0-34.0); Mean Corpuscular Hgb Conc 33.7 g/dL (32.0-36.0); Mean Corpuscular Volume 85.1 fL (80.0-100.0); Mean Platelet Volume 10.2 fL (9.4-12.4); Monocytes # (auto) 0.84 K/uL (0.11-0.59); Monocytes % (auto) 6.5 %; Neutrophils # (auto) 10.95 K/uL (1.40-6.50); Neutrophils % (auto) 85.1 %; Platelet Count 182 K/uL (130-400); RDW Coefficient of Variation 12.7 % (11.5-14.5); RDW Standard Deviation 38.9 fL (36.4-46.3); Red Blood Count 4.36 M/uL (4.70-6.10); White Blood Count 12.86 K/ul (4.8-10.8)
[2024-12-29 07:25] LABS: BUN Creatinine Ratio 14.3 (10-20); Calcium 8.9 mg/dl (8.6-10.3); Creatinine Clr Calc Pharmacy 158.6 ml/min; Potassium 4.2 mmol/L (3.5-5.1)
--- NOTE | 2024-12-29 08:57 | XRay Report ---
XR thoracolumbar spine 2V CLINICAL HISTORY: post-op T12-L2 posterior instrumented fusion COMPARISON STUDY: 10/02/2024 and 12/31/2024 FINDINGS: Posterior metallic fusion from T12 through L2 shows no hardware complication. There is stab le alignment and height loss at the L1 vertebral body fracture. Stable minimal retrolisthesis of L4 o n 5. No new fractures seen. Postoperative drain is present and skin elie are present posteriorly. IMPRESSION: Postoperative exam as described. ACT 112: Negative or not required by law. Electronically signed by: Jj Borges M.D. 12/29/2024 8:55 AM
[2024-12-29] MEDS: DEXTROAMPHETAMINE/AMPHETAMINE IR 10 MG TAB PO SCH (09:01)
[2024-12-29] MEDS: MULTIVITAMIN TAB PO SCH (09:02)
[2024-12-29] MEDS: LIOTHYRONINE SODIUM 25 MCG TAB PO SCH (09:02)
[2024-12-29] MEDS: ESCITALOPRAM OXALATE 20 MG TAB PO SCH (09:02)
[2024-12-29] MEDS: tiZANidine HCL 4 MG TABLET PO PRN (09:04)
--- NOTE | 2024-12-29 11:58 | Orthopedic Progress Note ---
Date of Service December 29, 2024 Assessment & Plan (1) S/P lumbar fusion: (2) Burst fracture of lumbar vertebra with nonunion: Plan Status post lumbar fusion for burst fracture, day 1 with no issues Monitor drain, if less than 50 cc over 8 hours may discontinue Activity as tolerated, ambulate as possible No lifting more than 10 pounds X-rays reviewed, instrumentation in good position Home likely later today or possibly tomorrow Subjective Patient is 1 day status post thoracolumbar fusion for burst fracture, he has been up and ambulating with no significant pain. No neurologic deficits, tolerating diet and voiding on his own. Review of Systems All systems reviewed & are unremarkable except as noted in HPI & below. Physical Exam 5 out of 5 strength bilateral lower extremities no deficits Drain functioning, approximately 10 to 15 cc over the last 3 hours Results & Data Results & Data Laboratory Results . Diagnostic Findings . PG Care Time/CCT Total # of Minutes Spent Total Time Spent with Patient: Total time spent is greater than 50% in coordination of care (as documented) at patient's floor/unit and/or counseling patient: Coding Level of Care Code 62725 Post Operative Follow-Up Diagnoses S/P lumbar fusion Z98.1 Closed burst fracture of lumbar vertebra with nonunion, subsequent encounter S32.001K Fracture type: closed (2) Burst fracture of lumbar vertebra with nonunion Fracture type: closed Qualified Code(s): S32.001K - Stable burst fracture of unspecified lumbar vertebra, subsequent encounter for fracture with nonunion
--- NOTE | 2024-12-29 12:01 | Discharge Summary ---
Date of Service December 29, 2024 Principal Diagnosis Same as "Discharge Diagnosis" noted below under Discharge Instructions. 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 They worked with physical therapy and met all goals. Pain was controlled with IV pain medication and transitioned to oral medications. Normal return of bowel and bladder function. They worked with physical therapy, vital signs were acceptable, no need for transfusion, deemed safe for discharge. PG Care Time/CCT Total # of Minutes Spent Total Time Spent with Patient: Total time spent is greater than 50% in coordination of care (as documented) at patient's floor/unit and/or counseling patient: Discharge Plan Discharge Items Patient Disposition: Home - Self-Care Reason For Visit: Closed Burst Fracture of Lumbar Vertebra with Nonu Discharge Diagnosis: s/p T12 - L2 posterior instrumented fusion Activity: Per Instructions section Non-emergency contact: Surgeon Call non-emergency contact if: your pain is worsening, your temperature is above 101, your wound has increased redness and your wound has increased drainage Follow-up/Referrals: Darnell Oneill MD [Surgeon] - (01/14/25 @ 08:00) PCP,NO [Primary Care Provider] - Diet: Regular Addtl Attending Provider Instructions: Instructions for FUSION Spine Surgery DO NOT TAKE ANY ANTI-INFLAMMATORY MEDICATIONS (MOTRIN, ALEVE, MOBIC, ETC.) IF YOU HAVE UNDERGONE A LUMBAR, THORACIC, OR CERVICAL FUSION DO NOT TAKE ANY HERBAL SUPPLEMENTS MEDICATIONS: You will be given prescriptions for the following: Oxycodone, Percocet or Hydrocodone - For breakthrough pain. Cyclobenzaprine (Flexeril), Valium (Diazepam), Tizanidine (Zanaflex), or Methocarbamol (Robaxin) For muscle spasms and back pain. Take these medications as needed. They will help the most during your recovery time. Senna-s and Miralax Senna-S twice daily, 17g packet of Miralax with water once daily while taking narcotics. These medications prevent constipation caused by the pain medications. Ondansetron (Zofran) For nausea. Cephalexin (Keflex) or Sulfamethoxazole/trimethoprim (Bactrim). Antibiotic. You are given IV antibiotics while in the hospital; you may or may not be given a prescription for home; this will be decided after surgery. Your pre-surgery prescription medications With the exception of anti- inflammatory medications, blood thinners (Coumadin, Plavix, Eliquis, Pradaxa, etc.), or narcotic pain medications, you may resume your home medications. For the above medications, you will be given specific instructions; you may resume blood thinners 3-4 days after surgery. ACTIVITIES: Walking Walking is mandatory. You need to walk at least once every hour while awake. Walking will help prevent blood clots in your legs and help prevent spasms in your back. Bending/twisting Limit bending at the waist, limit twisting and turning. You will be taught to "log roll" to get out of bed. Avoid athletic activities until further notice. Lifting Do NOT lift more than 5 lbs until further notice. Driving You may drive when you are no longer taking narcotic pain medications, can safely operate the brake/gas/clutch pedals, and can move your head/neck for visibility. Tobacco All tobacco products are strictly prohibited after surgery. Any use will dramatically increase your risk of complications. This includes vapor cigarettes, marijuana, nicotine patches and gums. Bracing/Cervical Collar There is no brace required for thoracic or lumbar surgery. If you have had a single level cervical fusion, you will be given a soft collar for comfort. Multiple level cervical fusions will receive a hard collar to be worn at all times, except for showering and hygiene, until follow up in clinic. Surgical Dressing Initial operative dressing is to stay on for 2 days; you may change it if it becomes saturated. From then on, change the dressing daily with dry gauze and paper tape. Continue to change dressing until there is no discharge. Once there is no discharge on the dressing, you are to leave the incision open to air, but make sure to keep it out of the sun. For supplies, stop by any local pharmacy. Any type of gauze dressing is acceptable. Do not put any ointments on the wound. You may shower 48 hours after your surgery. Cover the incision with Saran Wrap and tape the edges to prevent water from contacting the incision. If water contacts the incision, pat dry. No baths or submerging the incision until seen in the clinic at follow up appointment. Next Appointment: If you do not already have one made, you will need to schedule an appointment to see Dr. Oneill about 2 weeks after surgery. To schedule, please call [phone]. QUESTIONS Please contact the office with questions or concerns: [phone] If outside normal business hours, you will be connected with the on-call physician. Pending Studies at Discharge: No Stand-Alone Forms: My [facility] [employer] Medications and DC Order Prescriptions: New tizanidine 4 mg Tablet 4 mg PO Q8H PRN (Reason: muscle spasticity) 30 Days Qty: 90 0RF oxycodone 5 mg Tablet 5 mg PO Q4H PRN (Reason: pain) 15 Days Qty: 90 0RF Continued multivitamin Tablet 1 tab PO DAILY naltrexone 50 mg tablet 50 mg PO UD PRN (Reason: Other) Rx Instructions: takes when he feels the vivitrol shot effects wearing off for the month dextroamphetamine-amphetamine [Adderall] 30 mg tablet 30 mg PO QAM liothyronine 50 mcg tablet 50 mcg PO QAM buspirone 7.5 mg tablet 7.5 mg PO BID escitalopram oxalate 20 mg tablet 20 mg PO QAM Vivitrol 380 mg suspension,extended rel recon 380 mg IM MONTHLY Discharge Orders: Discharge Order (Routine); Ordered 12/29/24 Ordered By: Darnell Oneill Admission Data Admit Date/Time: 12/28/24 07:23 Attending Provider: Darnell Oneill Admit Provider: Darnell Oneill Primary Care Provider: PCP,PARAM
[2024-12-29] MEDS: ACETAMINOPHEN 500 MG TAB PO PRN (14:25)
[2024-12-29 14:26] VITALS: BP 145/95; PULSE 102; RESP 20; TEMP 98.1; O2SAT 97
== END 2024-12-29 18:00 | disposition home or self-care (01) | DRG 448 ==
LOC: ASU 06:06 → 3E 07:23